=== PATIENT | female | born 1955 | race Caucasian/White ===

== ENCOUNTER 2018-01-19 20:08 | Emergency (ER) | payer OTHER ==
[~2018-01-19] VITALS: Ht 160 cm; Wt 86.2 kg
[2018-01-19] MEDS ORDERED: SYNTHROID50 MCG (20:19)
[2018-01-19] MEDS ORDERED: BUPROPION XL150 MG (20:20)
== END 2018-01-19 22:28 | disposition home or self-care (01) ==
LOC: ER 20:08
DX: S70.211A Abrasion, right hip, initial encounter (principal); W45.8XXA Other foreign body or object entering through skin, initial encounter; Y93.89 Activity, other specified; Y92.89 Other specified places as the place of occurrence of the external cause; Y99.8 Other external cause status